=== PATIENT | male | born 1945 | race Caucasian/White ===

== ENCOUNTER 2018-02-13 00:59 | Inpatient (IN) | payer OTHER, MEDICAID ==
[~2018-02-13] VITALS: Ht 182.9 cm; Wt 94.3 kg
[2018-02-13 00:59] VITALS: BP 113/59
--- NOTE | 2018-02-13 00:59 | NUR ---
[facility] TO ER BED 3
--- NOTE | 2018-02-13 00:59 | NUR ---
72/M BIBA FROM [facility]. PT ARRIVES TO ED C/O 6/10 PRECORDIAL CP, RADIATING TO L SHOULDER, X45 MINS. PT WAS GIVEN ASPIRIN 324MG, NITRO X2 TOTAL 0.8MG, WITH SLIGHT IMPROVEMENT. PT AOX4, GCS 15, RR EVEN AND SLIGHTLY LABORED. PT REPORTS NAUSEA AND SLIGHT SOB, SPO2 98% ON 2L NC. LUNG SOUNDS CLEAR BL. BS ACTIVE X4, ABD SOFT ROUND NONTENDER, ABD HERNIA NOTED. BLOOD GLUCOSE 165. HX IN (5X STENTS), CAD, CVA, CHF, HTN, HLD, DM, MDD, HEARING LOSS
--- NOTE | 2018-02-13 01:10 | NUR ---
Huber hpokins in ED - 02/13/18 at 0307 by MEDJUDITH Patient being evaluated by physician at bedside.
--- NOTE | 2018-02-13 01:15 | NUR ---
EKG PERFORMED AT BEDSIDE. PT COVERED IN GOWN DURING PROCEDURE
[2018-02-13] MEDS ORDERED: MORPHINE SULFATE 4 MG/ML SYR IVP ONE (01:35)
[2018-02-13] MEDS ORDERED: NITROGLYCERIN 2% 1 GM PKT TP ONE (01:35)
[2018-02-13] MEDS ORDERED: ONDANSETRON 4 MG/2 ML VIAL IVP ONE (01:35)
[2018-02-13 01:55] LABS: BASOPHILS # (AUTO) 0.1 K/uL (0.00-0.22); BASOPHILS % (AUTO) 0.9 % (0.0-2.0); EOSINOPHILS # (AUTO) 0.2 K/uL (0-0.4); EOSINOPHILS % (AUTO) 2.7 % (0.0-4.0); HEMATOCRIT 29.7 % (36-52); HEMOGLOBIN 9.6 g/dL (12.0-18.0); LYMPHOCYTES # (AUTO) 1.9 K/uL (2.0-11.5); LYMPHOCYTES % (AUTO) 30.6 % (20.5-51.1); MEAN CORPUSCULAR HEMOGLOBIN 25 pg (27-31); MEAN CORPUSCULAR HGB CONC 32 g/dL (33-37); MEAN CORPUSCULAR VOLUME 78.1 fL (80-94); MONOCYTES # (AUTO) 0.6 K/uL (0.8-1.0); MONOCYTES % (AUTO) 9.6 % (1.7-9.3); NEUTROPHILS # (AUTO) 3.4 K/uL (1.8-7.7); NEUTROPHILS % (AUTO) 56.2 % (42.2-75.2); PLATELET COUNT (AUTO) 224 K/uL (140-450); RED CELL DISTRIBUTION WIDTH 17.5 % (11.6-13.7)
[2018-02-13 02:09] LABS: ANION GAP 11.3 (8-16); CARBON DIOXIDE 30.5 mmol/L (21-32); CHLORIDE 102 mmol/L (98-107); CREATININE 1.4 mg/dL (0.7-1.3); GLUCOSE 158 mg/dL (74-106); POTASSIUM 4.8 mmol/L (3.5-5.1); SODIUM SERUM 139 mmol/L (136-145); UREA NITROGEN, BLOOD 29 mg/dL (7-18)
[2018-02-13 02:15] LABS: ALBUMIN 3.2 g/dL (3.4-5.0); ASPARTATE AMINOTRANSFERASE 15 U/L (15-37); TOTAL BILIRUBIN 0.3 mg/dL (0.0-1.0)
[2018-02-13 02:24] LABS: CREATINE KINASE MB 1.1 ng/mL (0-3.6)
--- NOTE | 2018-02-13 02:36 | NUR ---
PT RESTING IN BED, RR EVEN AND UNLABORED. PT REPORTS 4/10 CP, REPORTS IMPROVEMENT. VSS. ALL NEEDS MET.
[2018-02-13] MEDS: NACL 0.9% 1,000 ML IV SCH ×2 (02:51→19:31)
[2018-02-13] MEDS ORDERED: NITROGLYCERIN 0.4 MG TAB SL PRN (02:55)
[2018-02-13] MEDS ORDERED: LORazepam 2 MG/ML VIAL IM/IVP PRN (02:55)
[2018-02-13] MEDS ORDERED: ONDANSETRON 4 MG/2 ML VIAL IM/IVP PRN (02:55)
[2018-02-13] MEDS ORDERED: ACETAMINOPHEN 325 MG TAB PO PRN (02:55)
[2018-02-13] MEDS ORDERED: DOCUSATE SODIUM 100 MG GELCAP PO PRN (02:55)
[2018-02-13] MEDS ORDERED: ZOLPIDEM 5 MG TAB PO PRN (02:55)
[2018-02-13] MEDS ORDERED: CRAN450C PO (03:18)
[2018-02-13] MEDS ORDERED: LACT1CAP92 PO (03:18)
[2018-02-13] MEDS ORDERED: ASCO-786 PO (03:18)
[2018-02-13] MEDS ORDERED: LISI10TA11 PO (03:18)
[2018-02-13] MEDS ORDERED: TIOT18CA2 IH (03:18)
[2018-02-13] MEDS ORDERED: CARB15DR61 OT (03:18)
[2018-02-13] MEDS ORDERED: METO25TE2 PO (03:18)
[2018-02-13] MEDS ORDERED: PANT40EC28 PO (03:18)
[2018-02-13] MEDS ORDERED: METF850T PO (03:18)
[2018-02-13] MEDS ORDERED: ZOLP5TAB1 PO (03:18)
[2018-02-13] MEDS ORDERED: FLUO10CA21 PO (03:18)
[2018-02-13] MEDS ORDERED: ALBU0.0912 IH (03:18)
[2018-02-13] MEDS ORDERED: BUDE1AER IH (03:18)
[2018-02-13] MEDS ORDERED: ASPI-1677 PO (03:18)
[2018-02-13] MEDS ORDERED: HYDR-5122 PO (03:18)
[2018-02-13] MEDS ORDERED: [UNRECOGNIZED DRUG - CODE] PO (03:18)
--- NOTE | 2018-02-13 03:25 | NUR ---
Patient will be admitted to care of DR. MONROE. Admited to TELE. Will go to room 112A. Belongings list completed. Report to HAROLDO Peraza RN.
[2018-02-13 03:31] LABS: PROTHROMBIN TIME 9.5 secs (10.8-13.4)
[2018-02-13 03:35] VITALS: BP 119/63
[2018-02-13] MEDS ORDERED: DEXTROSE 50% 50 ML SYR IVP PRN (03:35)
[2018-02-13] MEDS ORDERED: TIOTROPIUM BROMIDE 2.5 MCG IH SCH (03:35)
--- NOTE | 2018-02-13 03:35 | NUR ---
PT ESCOTED TO [facility] BY [facility]. PT AMBULATED WITH ASSIST WITH CATA KINCAID. REPORT GIVEN BY DEENA FENGSEARCH DIRECTORDIRECTOR OF RESIDENTIAL SERVICES NURSE FOR CONTINUITY OF CARE.
[2018-02-13] MEDS ORDERED: ALBUTEROL SULFATE/IPRATROPIU 3 ML SOL IH PRN (03:40)
--- NOTE | 2018-02-13 04:00 | NUR ---
PT IS AOX4, HIS SKIN IS INTACT EXCEPT FOR BIG TOE AND SECOND TOE ON RIGHT FOOT. PT IS SLEETMUTE AND PARTIALLY SIGHTED DUE TO DM AND HX OF CVA. PT CAME FROM [facility] [place] AND HAD THE FLU AND PN SHOT WITHIN THE LAST FEW MONTHS ACCORDING TO PT. V/S ARE T 97.5 P 58 R 20 B/P 119/63 02 95 WITH ROOM AIR.
[2018-02-13] MEDS: PANTOPRAZOLE 40 MG TABEC PO SCH (05:09)
[2018-02-13 05:36] LABS: APPEARANCE,URINE CLEAR (CLEAR); BILIRUBIN,URINE NEGATIVE (NEGATIVE); BLOOD, URINE NEGATIVE (NEGATIVE); COLOR,URINE YELLOW (YELLOW); LEUKOCYTE ESTERASE ,URINE NEGATIVE (NEGATIVE); NITRITE, URINE NEGATIVE (NEGATIVE); PH,URINE 5.5 (5.0-9.0); UGLUCOSE NEGATIVE (NEGATIVE)
[2018-02-13 05:39] LABS: BARBITURATE, URINE NEG. ng/ml (NEG <=200); BENZODIAZEPINE, URINE NEG. ng/mL (NEG <=200); CANNABINOID, URINE NEG. ng/mL (NEG <=50); COCAINE, URINE NEG. ng/mL (NEG <=300); OPIATE, URINE NEG. ng/mL (NEG <=2000); PHENCYCLIDINE SCREEN,URINE NEG. ng/mL (NEG <=25)
[2018-02-13] MEDS: BLOOD GLUCOSE MONITORING 1 DEV DEV FS SCH ×4 (05:41→20:24)
[2018-02-13 05:51] LABS: CHOL/HDL RATIO 7.5 (1-4.5); MAGNESIUM 1.4 mg/dL (1.8-2.4); PHOSPHORUS 3.9 mg/dL (2.5-4.9); THYROID STIMULATING HORMONE 2.45 uIU/mL (0.34-3.74)
[2018-02-13] MEDS ORDERED: ALBUTEROL SULFATE/IPRATROPIU 3 ML SOL IH SCH (06:00)
[2018-02-13] MEDS: HYDROcodone/APAP 5/325 MG 1 TAB TAB PO PRN ×3 (06:57→22:24)
[2018-02-13] MEDS ORDERED: MAG SULF 2000 MG/WATER PREMIX 50 ML IV ONE (07:00)
--- NOTE | 2018-02-13 07:25 | NUR ---
REPORT GIVEN TO FLOR RN DAYSHIFT NURSE AT BEDSIDE FOR CONTINUITY OF CARE, PT IN STABLE CONDITION.
--- NOTE | 2018-02-13 07:25 | NUR ---
RECEIVED PT REPORT FROM JAVA LEAD DEVELOPER RN. PT IS AAOX4. NO C/O PAIN AT THIS TIME. NO S/S OF ACUTE RESPIRATORY DISTRESS ON ROOM AIR. SKIN DRY, WARM, AND INTACT. IV TO LEFT HAND 18G, PATENT AND REINFORCED WITH TAPE AND TEGADERM, ASYMPTOMATIC. INITIAL ASSESSMENT DONE. BED AT LOWEST POSITION, SIDE RAILS UP. CALL LIGHT WITHIN REACH
[2018-02-13 07:41] LABS: BASOPHILS # (AUTO) 0.1 K/uL (0.00-0.22); EOSINOPHILS # (AUTO) 0.1 K/uL (0-0.4); EOSINOPHILS % (AUTO) 2.5 % (0.0-4.0); HEMATOCRIT 30.9 % (36-52); HEMOGLOBIN 9.8 g/dL (12.0-18.0); LYMPHOCYTES # (AUTO) 1.9 K/uL (2.0-11.5); LYMPHOCYTES % (AUTO) 34.6 % (20.5-51.1); MEAN CORPUSCULAR HEMOGLOBIN 25 pg (27-31); MEAN CORPUSCULAR HGB CONC 32 g/dL (33-37); MEAN CORPUSCULAR VOLUME 77.7 fL (80-94); MONOCYTES # (AUTO) 0.5 K/uL (0.8-1.0); NEUTROPHILS # (AUTO) 2.9 K/uL (1.8-7.7); NEUTROPHILS % (AUTO) 52.9 % (42.2-75.2); PLATELET COUNT (AUTO) 226 K/uL (140-450); RED BLOOD CELL COUNT(AUTO) 3.98 MIL/uL (4.20-6.10); RED CELL DISTRIBUTION WIDTH 17.4 % (11.6-13.7); WHITE BLOOD COUNT (AUTO) 5.4 K/uL (4.8-10.8)
[2018-02-13 07:47] LABS: MAGNESIUM 1.5 mg/dL (1.8-2.4); PHOSPHORUS 3.8 mg/dL (2.5-4.9)
[2018-02-13 07:50] LABS: ANION GAP 11.2 (8-16); CARBON DIOXIDE 30.4 mmol/L (21-32); CHLORIDE 102 mmol/L (98-107); CREATININE 1.3 mg/dL (0.7-1.3); GLUCOSE 130 mg/dL (74-106); POTASSIUM 4.6 mmol/L (3.5-5.1); SODIUM SERUM 139 mmol/L (136-145); UREA NITROGEN, BLOOD 28 mg/dL (7-18)
[2018-02-13 08:00] VITALS: BP 108/60
[2018-02-13] MEDS: FERROUS SULFATE 325 MG TABEC PO SCH (08:06)
[2018-02-13] MEDS: ASCORBIC ACID 500 MG TAB PO SCH (08:06)
[2018-02-13] MEDS: ASPIRIN 81 MG TAB.CHEW PO SCH (08:07)
[2018-02-13] MEDS: FLUoxetine 10 MG CAP PO SCH ×2 (08:08→20:36)
--- NOTE | 2018-02-13 08:10 | NUR ---
PT C/O CHRONIC LOWER BACK PAIN 7/10 AND A LITTLE CHEST TIGHTNESS, 3/10. WILL ADMINISTER MORPHINE.
[2018-02-13] MEDS: METOPROLOL SUCCINATE 50 MG TABER PO SCH (08:18)
[2018-02-13] MEDS: MAGNESIUM SULFATE 1GM in DEXTROSE 5% 100 ML PREMIX IV SCH ×2 (08:18→09:42)
[2018-02-13] MEDS: LISINOPRIL 10 MG TAB PO SCH (08:18)
[2018-02-13] MEDS: MORPHINE SULFATE 2 MG/ML SYR IVP PRN ×2 (08:22→20:36)
--- NOTE | 2018-02-13 08:33 | NUR ---
PATIENT HAS BEEN SCREENED AND CATEGORIZED HIGH NUTRITION RISK. PATIENT WILL BE SEEN WITHIN 1-2 DAYS OF ADMISSION. 02/13/18-02/14/[address]
[2018-02-13] MEDS ORDERED: DOCUSATE CALCIUM 240 MG GELCAP PO SCH (09:00)
[2018-02-13] MEDS ORDERED: METOPROLOL 25 MG TAB PO SCH (09:00)
[2018-02-13] MEDS ORDERED: LISINOPRIL 5 MG TAB PO SCH (09:00)
[2018-02-13] MEDS ORDERED: metFORMIN 850 MG TAB PO SCH (09:00)
[2018-02-13] MEDS ORDERED: NON-FORMULARY ITEM (Ascorbic Acid (Vitamin C) 500 MG) PO SCH (09:00)
[2018-02-13] MEDS ORDERED: CARBAMIDE PEROXIDE 6.5% OT 15 ML BTL OT SCH (09:00)
[2018-02-13] MEDS ORDERED: NON-FORMULARY ITEM (Budesonide/Formoterol Fumarate* (Symbicort 160-4.5 Mcg Inhaler*) 2 PUF IH SCH (09:00)
--- NOTE | 2018-02-13 11:52 | NUR ---
02/13/18 RD INITIAL ASSESSMENT COMPLETED PLEASE REFER TO NUTRITION ASSESSMENT UNDER CARE ACTIVITY FOR ESTIMATED NUTRITIONAL NEEDS. 1. CONTINUE CCHO TOLERATED 2. RECOMMEND CCHO, CARDIAC DIET 3. EDUCATE ON DIABETES AND CHO COUNTING 4. RD TO FOLLOW-UP 3-5 DAYS, MODERATE RISK KATLYN HERBERT, RD
[2018-02-13 12:00] VITALS: BP 125/51
--- NOTE | 2018-02-13 13:05 | NUR ---
PT CHATTING WITH BED B, NO S/S OF ACUTE DISTRESS NOTED.
[2018-02-13] MEDS: INSULIN LISPRO SLIDING SCALE 100 UNITS/ML VIAL SUBQ PRN (13:08)
[2018-02-13] MEDS: ALBUTEROL SULFATE/IPRATROPIU 3 ML SOL IH SCH ×2 (13:22→19:25)
[2018-02-13 16:00] VITALS: BP 110/50
--- NOTE | 2018-02-13 17:05 | NUR ---
MADE PT AWARE HE WILL BE NPO AFTER MIDNIGHT, LEXISCAN IS SCHEDULED FOR TOMORROW MORNING.
--- NOTE | 2018-02-13 18:31 | NUR ---
IV LEFT HAND 18G, LEAKING, DC'D, TIP INTACT. PRESSURE APPLIED. NEW IV PLACED ON LEFT FA 22G. PT TOLERATED WELL.
--- NOTE | 2018-02-13 19:20 | NUR ---
ENDORSED PT TO CASE FITTER NURSE, PT IN STABLE CONDITION, NO DISTRESS NOTED.
--- NOTE | 2018-02-13 19:21 | NUR ---
RECEIVED REPORT FROM DAY SHIFT NURSE FLOR-RN AT BEDSIDE. PT RESTING IN BED, AOX4, AMBULATORY WITH ASSISTANCE, ON ROOM AIR WITH LEFT FA #22G RUNNING NS 0.9% AT 60ML/HR. RIGHT FOOD BIG TOE AND SECOND TOE AMPUTATION. DISCUSSED PLAN OF CARE AND PT VERBALIZED UNDERSTANDING. NO S/S OF RESPIRATORY DISTRESS OR DISCOMFORT NOTED AT THIS TIME. BED IN LOWEST POSITION, BED BREAKS ON, BOTH SIDE RAILS UP AND BED ALARM ON. FALL PRECAUTIONS IN PLACE. BEDSIDE TABLE AND CALL LIGHT ARE WITHIN REACH. WILL CONTINUE TO MONITOR.
[2018-02-13] MEDS: BUDESONIDE 0.25 MG/2 ML NEBU INH SCH (19:30)
[2018-02-13 20:00] VITALS: BP 118/64
--- NOTE | 2018-02-13 20:00 | NUR ---
VITAL SIGNS TAKEN AND TOLERATED WELL. BLOOD GLUCOSE 149- NO INSULIN COVERAGE NEEDED. NO S/S OF RESPIRATORY DISTRESS OR DISCOMFORT NOTED AT THIS TIME. WILL CONTINUE TO MONITOR.
[2018-02-13] MEDS: ATORVASTATIN 20 MG TAB PO SCH (20:36)
--- NOTE | 2018-02-13 20:36 | NUR ---
SCHEDULED MEDICATION GIVEN AND TOLERATED WELL. PT C/O PAIN 10/25 AND ADMINISTERED MORPHINE. PT TOLERATED WELL. NO S/S OF RESPIRATORY DISTRESS OR DISCOMFORT NOTED AT THIS TIME. WILL CONTINUE TO MONITOR.
--- NOTE | 2018-02-13 22:00 | NUR ---
PT SLEEPING IN BED. NO S/S OF RESPIRATORY DISTRESS OR DISCOMFORT NOTED AT THIS TIME. WILL CONTINUE TO MONITOR.
--- NOTE | 2018-02-13 22:24 | NUR ---
PT C/O PAIN 08/25 AND ADMINISTERED NORCO. PT TOLERATED WELL. NO S/S OF RESPIRATORY DISTRESS OR DISCOMFORT NOTED AT THIS TIME. WILL CONTINUE TO MONITOR.
[2018-02-14] VITALS: BP 135/62
--- NOTE | 2018-02-14 | NUR ---
VITAL SIGNS TAKEN AND TOLERATED WELL. NO S/S OF RESPIRATORY DISTRESS OR DISCOMFORT NOTED AT THIS TIME. WILL CONTINUE TO MONITOR.
[2018-02-14] MEDS: NACL 0.9% 1,000 ML IV SCH (01:28)
--- NOTE | 2018-02-14 01:28 | NUR ---
NEW BAG OF IVF HUNG. PT TOLERATED WELL. NO S/S OF RESPIRATORY DISTRESS OR DISCOMFORT NOTED AT THIS TIME. WILL CONTINUE TO MONITOR.
--- NOTE | 2018-02-14 02:00 | NUR ---
PT CONTINUES TO SLEEP. NO S/S OF RESPIRATORY DISTRESS OR DISCOMFORT NOTED AT THIS TIME. WILL CONTINUE TO MONITOR.
[2018-02-14 04:00] VITALS: BP 120/52
--- NOTE | 2018-02-14 04:00 | NUR ---
VITAL SIGNS TAKEN AND TOLERATED WELL. NO S/S OF RESPIRATORY DISTRESS OR DISCOMFORT NOTED AT THIS TIME. WILL CONTINUE TO MONITOR.
[2018-02-14] MEDS: MORPHINE SULFATE 2 MG/ML SYR IVP PRN ×3 (04:44→19:25)
[2018-02-14] MEDS: PANTOPRAZOLE 40 MG TABEC PO SCH (06:10)
--- NOTE | 2018-02-14 06:10 | NUR ---
SCHEDULED MEDICATION GIVEN AND TOLERATED WELL. BLOOD GLUCOSE 147- NO INSULIN COVERAGE NEEDED. NO S/S OF RESPIRATORY DISTRESS OR DISCOMFORT NOTED AT THIS TIME. WILL CONTINUE TO MONITOR.
[2018-02-14] MEDS: BLOOD GLUCOSE MONITORING 1 DEV DEV FS SCH ×4 (06:14→20:04)
--- NOTE | 2018-02-14 07:14 | NUR ---
ENDORSED PT CARE TO DAY SHIFT NURSE PAGE FOR CONTINUITY OF CARE.
--- NOTE | 2018-02-14 07:15 | NUR ---
RECEIVED REPORT FROM RESOURCE CENTER TEACHER NURSE AT BEDSIDE. PT RESTING IN BED, AAOX4, AMBULATORY WITH ASSISTANCE, ON ROOM AIR WITH LEFT FA #22G RUNNING NS AT 60ML/HR. NO S/S OF RESPIRATORY DISTRESS NOTED AT THIS TIME. DISCUSSED PLAN OF CARE AND PT VERBALIZED UNDERSTANDING. BED IN LOWEST POSITION, BED BREAKS ON, BOTH SIDE RAILS UP AND BED ALARM ON. FALL PRECAUTIONS IN PLACE. CALL LIGHT WITHIN REACH. WILL CONTINUE TO MONITOR.
[2018-02-14] MEDS: BUDESONIDE 0.25 MG/2 ML NEBU INH SCH ×2 (07:42→19:35)
[2018-02-14] MEDS: ALBUTEROL SULFATE/IPRATROPIU 3 ML SOL IH SCH ×3 (07:42→19:35)
[2018-02-14 08:00] VITALS: BP 145/72
[2018-02-14] MEDS: FLUoxetine 10 MG CAP PO SCH ×2 (08:27→20:06)
[2018-02-14] MEDS: ASCORBIC ACID 500 MG TAB PO SCH (08:27)
[2018-02-14] MEDS: LISINOPRIL 10 MG TAB PO SCH (08:27)
[2018-02-14] MEDS: METOPROLOL SUCCINATE 50 MG TABER PO SCH (08:27)
[2018-02-14] MEDS: FERROUS SULFATE 325 MG TABEC PO SCH (08:27)
[2018-02-14] MEDS: ASPIRIN 81 MG TAB.CHEW PO SCH (08:28)
[2018-02-14] MEDS ORDERED: CYCLOBENZAPRINE 10 MG TAB PO ONE (08:30)
[2018-02-14 08:46] LABS: FOLIC ACID 7.1 ng/mL (>3.0)
[2018-02-14] MEDS ORDERED: MAGNESIUM OXIDE 400 MG TAB PO ONE (09:25)
[2018-02-14] MEDS ORDERED: CYCLOBENZAPRINE 10 MG TAB PO SCH (09:30)
[2018-02-14] MEDS ORDERED: REGADENOSON 0.4 MG/5 ML SYR IV ONE (10:00)
--- NOTE | 2018-02-14 11:11 | NUR ---
RECEIVED A CALL FROM CORRINA FROM [facility] [place]. WHEN PATIENT DISCHARGED , IF HE HAS A SKILLED NEED, [facility] [place] WILL TAKE HIM BACK. HE WAS SUPPOSE TO GO TO A BOARD AND CARE UPON DISCHARGE AT [facility] [place]. THE NAME IS ATA [facility] AND [facility] [address] [id number] PHONE [phone]. METER READER INSPECTOR IS ATA.
--- NOTE | 2018-02-14 11:20 | NUR ---
VACUUM DRIER TENDER DR IBARRA TALKED TO PT. PT AGREED TO DO THE LEXISCAN STRESS TEST TOMORROW. OK TO RESUME DIET FOR NOW, NPO AFTER MIDNIGHT TONIGHT.
[2018-02-14 12:00] VITALS: BP 120/66
--- NOTE | 2018-02-14 12:30 | NUR ---
PT EATING LUNCH, CHATTING WITH ROOMMATE, NO S/S OF DISTRESS NOTED.
[2018-02-14 13:00] LABS: BASOPHILS % (AUTO) 0.8 % (0.0-2.0); EOSINOPHILS # (AUTO) 0.2 K/uL (0-0.4); EOSINOPHILS % (AUTO) 2.6 % (0.0-4.0); HEMATOCRIT 31.6 % (36-52); HEMOGLOBIN 10.2 g/dL (12.0-18.0); LYMPHOCYTES # (AUTO) 1.2 K/uL (2.0-11.5); LYMPHOCYTES % (AUTO) 19.6 % (20.5-51.1); MEAN CORPUSCULAR HEMOGLOBIN 25 pg (27-31); MEAN CORPUSCULAR HGB CONC 32 g/dL (33-37); MEAN CORPUSCULAR VOLUME 77.9 fL (80-94); MONOCYTES # (AUTO) 0.5 K/uL (0.8-1.0); MONOCYTES % (AUTO) 8.8 % (1.7-9.3); NEUTROPHILS # (AUTO) 4.1 K/uL (1.8-7.7); NEUTROPHILS % (AUTO) 68.2 % (42.2-75.2); PLATELET COUNT (AUTO) 224 K/uL (140-450); RED BLOOD CELL COUNT(AUTO) 4.06 MIL/uL (4.20-6.10); RED CELL DISTRIBUTION WIDTH 17.5 % (11.6-13.7); WHITE BLOOD COUNT (AUTO) 5.9 K/uL (4.8-10.8)
[2018-02-14] MEDS: INSULIN LISPRO SLIDING SCALE 100 UNITS/ML VIAL SUBQ PRN ×3 (13:01→20:07)
[2018-02-14 13:41] LABS: SODIUM SERUM 138 mmol/L (136-145)
[2018-02-14 13:42] LABS: ANION GAP 18.1 (8-16); CARBON DIOXIDE 25.3 mmol/L (21-32); CHLORIDE 100 mmol/L (98-107); CREATININE 1.1 mg/dL (0.7-1.3); GLUCOSE 181 mg/dL (74-106); POTASSIUM 5.4 mmol/L (3.5-5.1); UREA NITROGEN, BLOOD 21 mg/dL (7-18)
--- NOTE | 2018-02-14 13:45 | NUR ---
CM NOTE PATIENT HAS SECONDARY [facility], POLICY# [id number] PER LUNA LEAL OF [facility] # [phone], FOR TRANSPORT GOING BACK TO SNF, USE [facility]# [phone]. PER LUNA LEAL, NO PRE-AUTHORIZATION WILL BE REQUIRED AND JUST LET [facility] KNOW PATIENT HAS [facility] SECONDARY CHARGE NURSE AILIN MARIE
[2018-02-14 14:00] LABS: MAGNESIUM 1.7 mg/dL (1.8-2.4); PHOSPHORUS 3.8 mg/dL (2.5-4.9)
[2018-02-14] MEDS ORDERED: MAGNESIUM OXIDE 400 MG TAB PO SCH (15:57)
[2018-02-14] MEDS ORDERED: SODIUM POLYSTYRENE 15 GM/60 ML UDBTL PO SCH (15:58)
[2018-02-14 16:00] VITALS: BP 104/43
--- NOTE | 2018-02-14 16:05 | NUR ---
VITALS TAKEN, BLOOD SUGAR DONE. PT IS ON RM AIR. NO S/S OF ACUTE DISTRESS.
--- NOTE | 2018-02-14 19:30 | NUR ---
RECEIVED REPORT FROM DAY SHIFT NURSE, FLOR, AT PT BEDSIDE. PT IN STABLE CONDITION, CHATTING WITH ROOMMATE. PT IS AAOX4, HARD OF HEARING. PT IS ON RA. IV ACCESS IN L FA 22G WITH IVF RUNNING PER MD ORDERS. IV IS PATENT AND INTACT. PT SKIN IS INTACT WITH 1ST AND 2ND TOE AMPUTATION TO R FOOT. PT CURRENTLY HAS NO C/O CHEST PAIN OR ANY OTHER PAIN. BED IS LOCKED, LOW POSITION WITH SIDE RAILS UP X2. BOARD UPDATED. CALL LIGHT IS WITHIN REACH. WILL CONTINUE TO MONITOR.
--- NOTE | 2018-02-14 19:30 | NUR ---
ENDORSED PT TO EDITORIAL WRITER RN. PT IN STABLE CONDITION. CHATTING WITH ROOMMATE.
[2018-02-14 20:00] VITALS: BP 113/56
[2018-02-14] MEDS: ATORVASTATIN 20 MG TAB PO SCH (20:06)
--- NOTE | 2018-02-14 20:07 | NUR ---
ADMINISTERED SCHEDULED MEDICATION. INSULIN COVERAGE GIVEN FOR BS 201. PT TOLERATED WELL. NO S/SX OF DISTRESS. WILL CONTINUE TO MONITOR.
[2018-02-14] MEDS ORDERED: METHOCARBAMOL 500 MG TAB PO SCH (20:40)
--- NOTE | 2018-02-14 21:30 | NUR ---
ORDERED K-PAD TO HELP WITH PT LOWER BACK PAIN. K-PAD PLACED IN PT ROOM, WILL APPLY WHEN PT WAKES UP.
--- NOTE | 2018-02-14 23:30 | NUR ---
PT ASLEEP IN BED. NO SIGNS OR SYMPTOMS OF DISTRESS. WILL CONTINUE TO MONITOR.
[2018-02-15] VITALS: BP 114/48
--- NOTE | 2018-02-15 01:40 | NUR ---
NO CHANGE IN CONDITION. PT ASLEEP IN BED. NO SIGNS OR SYMPTOMS OF DISTRESS. WILL CONTINUE TO MONITOR.
[2018-02-15 04:00] VITALS: BP 126/51
--- NOTE | 2018-02-15 04:10 | NUR ---
PT ASLEEP IN BED. NO SIGNS OR SYMPTOMS OF DISTRESS. WILL CONTINUE TO MONITOR.
[2018-02-15] MEDS: NACL 0.9% 1,000 ML IV SCH ×2 (04:51→21:31)
[2018-02-15] MEDS: BLOOD GLUCOSE MONITORING 1 DEV DEV FS SCH ×4 (05:51→20:05)
[2018-02-15] MEDS: PANTOPRAZOLE 40 MG TABEC PO SCH (05:52)
--- NOTE | 2018-02-15 05:52 | NUR ---
ADMINISTERED SCHEDULED MEDICATION. BS CHECKED, 148. NO COVERAGE NEEDED PER MD ORDERS. PT TOLERATED WELL. WILL CONTINUE TO MONITOR.
[2018-02-15 07:10] LABS: BASOPHILS % (AUTO) 0.5 % (0.0-2.0); EOSINOPHILS # (AUTO) 0.2 K/uL (0-0.4); EOSINOPHILS % (AUTO) 2.8 % (0.0-4.0); HEMATOCRIT 30.4 % (36-52); HEMOGLOBIN 9.8 g/dL (12.0-18.0); LYMPHOCYTES # (AUTO) 1.2 K/uL (2.0-11.5); LYMPHOCYTES % (AUTO) 20.2 % (20.5-51.1); MEAN CORPUSCULAR HEMOGLOBIN 25 pg (27-31); MEAN CORPUSCULAR HGB CONC 32 g/dL (33-37); MEAN CORPUSCULAR VOLUME 77.6 fL (80-94); MONOCYTES # (AUTO) 0.6 K/uL (0.8-1.0); MONOCYTES % (AUTO) 9.7 % (1.7-9.3); NEUTROPHILS % (AUTO) 66.8 % (42.2-75.2); PLATELET COUNT (AUTO) 210 K/uL (140-450); RED BLOOD CELL COUNT(AUTO) 3.92 MIL/uL (4.20-6.10); RED CELL DISTRIBUTION WIDTH 17.7 % (11.6-13.7); WHITE BLOOD COUNT (AUTO) 5.9 K/uL (4.8-10.8)
[2018-02-15 07:13] LABS: ANION GAP 8.6 (8-16); CARBON DIOXIDE 31.6 mmol/L (21-32); CHLORIDE 103 mmol/L (98-107); CREATININE 1.1 mg/dL (0.7-1.3); GLUCOSE 142 mg/dL (74-106); POTASSIUM 4.2 mmol/L (3.5-5.1); SODIUM SERUM 139 mmol/L (136-145); UREA NITROGEN, BLOOD 17 mg/dL (7-18)
[2018-02-15 07:17] LABS: MAGNESIUM 1.5 mg/dL (1.8-2.4); PHOSPHORUS 3.5 mg/dL (2.5-4.9)
[2018-02-15] MEDS: BUDESONIDE 0.25 MG/2 ML NEBU INH SCH ×2 (07:18→19:45)
[2018-02-15] MEDS: ALBUTEROL SULFATE/IPRATROPIU 3 ML SOL IH SCH ×3 (07:18→19:45)
--- NOTE | 2018-02-15 07:29 | NUR ---
ENDORSED PT TO DAY SHIFT NURSE FOR CONTINUITY OF CARE. PT IN STABLE CONDITION.
--- NOTE | 2018-02-15 07:35 | NUR ---
RECEIVED PT FROM VESSEL OPERATOR NURSEBARRETT, PT IS AWAKE AND LYING ON THE BED WITH SIDE RAILS UP AND CALL LIGHT WITHIN REACH, FALL PRECAUTION ENFORCED, PT HAS AN IV LINE ON THE LEFT HAND G. 22 WITH NS AT 60ML/HR, INFUSING AND INTACT, O2 2L NC WAS IN PLACE, NO SIGN OF DISTRESS NOTED. WILL CONTINUE TO MONITOR PT.
[2018-02-15 08:00] VITALS: BP 116/65
[2018-02-15] MEDS ORDERED: MAGNESIUM OXIDE 400 MG TAB PO SCH (09:00)
[2018-02-15] MEDS: MORPHINE SULFATE 2 MG/ML SYR IVP PRN ×2 (09:08→15:24)
--- NOTE | 2018-02-15 09:12 | NUR ---
PT IS AWAKE AND VERBALIZED A PAIN RATE OF 8/10, MORPHINE IV PUSH WS GIVEN AND PT TOLERATED IT, WILL CONTINUE TO MONITOR PT.
[2018-02-15] MEDS: FERROUS SULFATE 325 MG TABEC PO SCH (10:07)
[2018-02-15] MEDS: METOPROLOL SUCCINATE 50 MG TABER PO SCH (10:07)
[2018-02-15] MEDS: ASPIRIN 81 MG TAB.CHEW PO SCH (10:07)
[2018-02-15] MEDS: ASCORBIC ACID 500 MG TAB PO SCH (10:08)
[2018-02-15] MEDS: FLUoxetine 10 MG CAP PO SCH ×2 (10:08→20:19)
[2018-02-15] MEDS: LISINOPRIL 10 MG TAB PO SCH (10:08)
[2018-02-15] MEDS: HYDROcodone/APAP 5/325 MG 1 TAB TAB PO PRN (11:32)
[2018-02-15] MEDS: INSULIN LISPRO SLIDING SCALE 100 UNITS/ML VIAL SUBQ PRN ×2 (11:49→17:31)
[2018-02-15 12:00] VITALS: BP 114/58
--- NOTE | 2018-02-15 13:59 | NUR ---
PT REFUSED MED AT THIS TIME STATING HE WANTS TO EAT. EXPLAINED BENEFITS/INDICATIONS FOR BREATHING TX PT STILL REFUSED. PT NOT SOB AT THIS TIME.
[2018-02-15 16:00] VITALS: BP 112/57
--- NOTE | 2018-02-15 17:28 | NUR ---
PT IS AWAKE AND INSULIN 2 UNITS WAS GIVEN FOR THE BLOOD GLUCOSE RESULT OF 157.
--- NOTE | 2018-02-15 19:20 | NUR ---
ENDORSED PT TO PEOPLESOFT CRM DEVELOPER NURSEDENISHA FOR CONTINUITY OF CARE, PT TIS STABLE AND SLEEPING AT THIS TIME.
--- NOTE | 2018-02-15 19:25 | NUR ---
RECEIVED PATIENT ASLEEP ON BED IN COMFORTABLE POSITION. IVF INFUSING WELL. FALL PRECAUTION APPLIED. EXPLAINED PLAN OF CARE AND VERBALIZED UNDERSTANDING. CALL LIGHT WITHIN REACH. WILL CONTINUE TO MONITOR.
[2018-02-15 20:00] VITALS: BP 124/61
--- NOTE | 2018-02-15 20:00 | NUR ---
V/S TAKEN AND RECORDED. BS TAKEN NO COVERAGE PER SLIDING SCALE.
[2018-02-15] MEDS: ATORVASTATIN 20 MG TAB PO SCH (20:19)
--- NOTE | 2018-02-15 21:00 | NUR ---
SCHEDULE MEDICATION GIVEN AND TOLERATED WELL. ASSISTING PATIENT TO SIT-UP ON THE SIDE OF THE BED. PATIENT HAVE HEARING PROBLEM. ALL NEEDS ATTENDED. CALL LIGHT WITHIN REACH. DENIES PAIN. WILL CONTINUE TO MONITOR.
[2018-02-16] VITALS: BP 117/63
--- NOTE | 2018-02-16 | NUR ---
V/S TAKEN AND RECORDED. NO S/S OF DISTRESS NOTED. ALL NEEDS ATTENDED. CALL LIGHT WITHIN REACH. WILL CONTINUE TO MONITOR.
--- NOTE | 2018-02-16 02:00 | NUR ---
SEEN PATIENT ASLEEP COMFORTABLE ON BED. NO S/S OF DISTRESS NOTED. BED IN LOW LOCKED POSITION. CALL LIGHT WITHIN REACH. DENIES PAIN. ALL NEEDS ATTENDED.
[2018-02-16 04:00] VITALS: BP 133/68
[2018-02-16] MEDS: HYDROcodone/APAP 5/325 MG 1 TAB TAB PO PRN ×2 (04:18→12:41)
[2018-02-16] MEDS: INSULIN LISPRO SLIDING SCALE 100 UNITS/ML VIAL SUBQ PRN ×2 (06:26→12:09)
[2018-02-16] MEDS: BLOOD GLUCOSE MONITORING 1 DEV DEV FS SCH ×2 (06:28→12:08)
[2018-02-16] MEDS: PANTOPRAZOLE 40 MG TABEC PO SCH (06:39)
--- NOTE | 2018-02-16 07:15 | NUR ---
GAVE REPORT TO AM SHIFT NURSE AT BEDSIDE FOR CONTINUITY OF CARE. PATIENT IN STABLE CONDITION.
[2018-02-16 07:20] LABS: BASOPHILS % (AUTO) 0.5 % (0.0-2.0); EOSINOPHILS # (AUTO) 0.2 K/uL (0-0.4); EOSINOPHILS % (AUTO) 2.7 % (0.0-4.0); HEMATOCRIT 30.2 % (36-52); HEMOGLOBIN 9.7 g/dL (12.0-18.0); LYMPHOCYTES # (AUTO) 1.2 K/uL (2.0-11.5); LYMPHOCYTES % (AUTO) 22.2 % (20.5-51.1); MEAN CORPUSCULAR HEMOGLOBIN 25 pg (27-31); MEAN CORPUSCULAR HGB CONC 32 g/dL (33-37); MEAN CORPUSCULAR VOLUME 78.4 fL (80-94); MONOCYTES # (AUTO) 0.6 K/uL (0.8-1.0); NEUTROPHILS # (AUTO) 3.6 K/uL (1.8-7.7); NEUTROPHILS % (AUTO) 64.6 % (42.2-75.2); PLATELET COUNT (AUTO) 208 K/uL (140-450); RED BLOOD CELL COUNT(AUTO) 3.85 MIL/uL (4.20-6.10); RED CELL DISTRIBUTION WIDTH 17.4 % (11.6-13.7); WHITE BLOOD COUNT (AUTO) 5.6 K/uL (4.8-10.8)
[2018-02-16] MEDS: BUDESONIDE 0.25 MG/2 ML NEBU INH SCH (07:20)
[2018-02-16] MEDS: ALBUTEROL SULFATE/IPRATROPIU 3 ML SOL IH SCH ×2 (07:20→14:17)
--- NOTE | 2018-02-16 07:30 | NUR ---
RECEIVED ON BED AAOX4. NO SOB NOTED. NO C/O PAIN AT THIS TIME. IV TO LT AC PATENT AND INTACT. CHEST CLEAR. ABDOMEN SOFT, BOWEL SOUNDS PRESENT. NO EDEMA NOTED. INSTRUCTED PT TO CALL FOR ASSISTANCE, CALL LIGHT WITHIN REACH, PT VERBALIZED UNDERSTANDING. Addendum: 02/16/18 at 1020 by Jodi Abreu RN IV TO LEFT HAND RATHER
[2018-02-16 08:00] VITALS: BP 131/65
[2018-02-16 08:25] LABS: MAGNESIUM 1.6 mg/dL (1.8-2.4); PHOSPHORUS 3.4 mg/dL (2.5-4.9)
[2018-02-16 08:28] LABS: ANION GAP 10.2 (8-16); CARBON DIOXIDE 30.4 mmol/L (21-32); CHLORIDE 103 mmol/L (98-107); CREATININE 1.1 mg/dL (0.7-1.3); GLUCOSE 151 mg/dL (74-106); POTASSIUM 4.6 mmol/L (3.5-5.1); SODIUM SERUM 139 mmol/L (136-145); UREA NITROGEN, BLOOD 19 mg/dL (7-18)
[2018-02-16] MEDS ORDERED: MAGNESIUM OXIDE 400 MG TAB PO SCH (09:30)
[2018-02-16] MEDS: MORPHINE SULFATE 2 MG/ML SYR IVP PRN (09:41)
[2018-02-16] MEDS: ASPIRIN 81 MG TAB.CHEW PO SCH (09:42)
[2018-02-16] MEDS: LISINOPRIL 10 MG TAB PO SCH (09:44)
[2018-02-16] MEDS: ASCORBIC ACID 500 MG TAB PO SCH (09:45)
[2018-02-16] MEDS: FLUoxetine 10 MG CAP PO SCH (09:45)
[2018-02-16] MEDS: FERROUS SULFATE 325 MG TABEC PO SCH (09:45)
[2018-02-16] MEDS: METOPROLOL SUCCINATE 50 MG TABER PO SCH (09:46)
--- NOTE | 2018-02-16 10:50 | NUR ---
REPORT GIVEN TO ELIESER POLANCO AT [facility] [place]. ELIESER STATED THEY WILL AFTER LUNCH WHEN PT'S BED IS READY.
[2018-02-16 12:00] VITALS: BP 130/70
--- NOTE | 2018-02-16 13:00 | NUR ---
ELIESER FROM [facility] CALLED THAT STATING THAT PT'S ROOM ROOM IS READY NOW. STEPHANIE-APPLICATIONS SPECIALIST NURSE CALLED [facility].
--- NOTE | 2018-02-16 14:30 | NUR ---
DISCHARGE INSTRUCTIONS AND PRESCRIPTIONS GIVEN TO PT WHICH VERBALIZED FULL UNDERSTANDING OF THE INSTRUCTIONS AND THE NEED TO GO BACK TO SNF ([facility]). ARM BANDS AND IV REMOVED, CANNULA TIP INTACT.
--- NOTE | 2018-02-16 14:50 | NUR ---
PT IS WHEELED TO THE PARKING LOT IN STABLE CONDITION. NO COMPLAINTS MADE. NO SOB NOTED. [facility] TRANSPORTATION [facility] [place] [facility]
== END 2018-02-16 14:50 | disposition home or self-care (01) | DRG 205 ==
LOC: MED 00:59 → MTU 02:53
PROVIDERS: ADMIT General Practice; ATTEND General Practice
DX: M94.0 Chondrocostal junction syndrome [Tietze] (principal); N17.0 Acute kidney failure with tubular necrosis; E44.0 Moderate protein-calorie malnutrition; K21.9 Gastro-esophageal reflux disease without esophagitis; E11.65 Type 2 diabetes mellitus with hyperglycemia; J44.9 Chronic obstructive pulmonary disease, unspecified; I25.10 Atherosclerotic heart disease of native coronary artery without angina pectoris; E78.5 Hyperlipidemia, unspecified; F32.9 Major depressive disorder, single episode, unspecified; G47.00 Insomnia, unspecified; K22.70 Barrett's esophagus without dysplasia; Z96.641 Presence of right artificial hip joint; F17.210 Nicotine dependence, cigarettes, uncomplicated; D50.9 Iron deficiency anemia, unspecified; I11.9 Hypertensive heart disease without heart failure; E66.01 Morbid (severe) obesity due to excess calories; G89.29 Other chronic pain; M54.5 Low back pain; E83.42 Hypomagnesemia; M51.36 Other intervertebral disc degeneration, lumbar region; Z88.8 Allergy status to other drugs, medicaments and biological substances; Z91.018 Allergy to other foods; Z79.82 Long term (current) use of aspirin; Z79.84 Long term (current) use of oral hypoglycemic drugs; Z79.899 Other long term (current) drug therapy; I25.2 Old myocardial infarction; Z90.89 Acquired absence of other organs; Z95.5 Presence of coronary angioplasty implant and graft; Z98.42 Cataract extraction status, left eye; Z98.41 Cataract extraction status, right eye; Z68.31 Body mass index [BMI] 31.0-31.9, adult
CPT/HCPCS: 36415; 71045; 72110; 80048; 80053; 80305; 82550; 82553; 82607; 82728; 82746; 82948; 83036; 83540; 83690; 83735; 84100; 84134; 84443; 84484; 85025; 85045; 85610; 85730; 87081; 93005; 93925; 93970; 94640; 96374; 96375; 99285; J1815; J2270; J2405; J2785; J7030; J7620; J7626; Q0092